=== PATIENT | male | born 1950 | race Caucasian/White ===

== ENCOUNTER 2025-03-15 09:10 | Inpatient (IN) | payer MEDICARE ==
[2025-03-15] MEDS: MAGNESIUM SULFATE-D5W PMX 1 GM in DEXTROSE/WATER 1 100ML.BAG IVPB STA (09:58)
[2025-03-15] MEDS: LACTATED RINGERS 1,000 ML IV ONE (09:58)
[2025-03-15] MEDS: methylPREDNISolone SOD SUCCI 125 MG/2 ML VIAL IV STA (09:58)
[2025-03-15] MEDS: IPRATROPIUM-ALBUTEROL 3 ML NEB INHALATION STA ×2 (10:24→14:07)
[2025-03-15 10:42] LABS: Basophils # (A) 0.01 10*3/uL (0.00-0.10); Basophils % (A) 0.1 %; Eosinophils # (A) 0.02 10*3/uL (0.04-0.35); Eosinophils % (A) 0.3 %; HCT 53.2 % (39.6-50.0); HGB 18.8 g/dL (13.0-17.0); Lymphocytes # (A) 0.78 10*3/uL (0.90-5.00); MCH 31.9 pg (27.0-32.0); MCHC 35.3 g/dL (32.0-37.0); MCV 90.3 fL (80.0-97.0); Mean Platelet Volume 9.2 fL (9.5-12.2); Monocytes # (A) 0.68 10*3/uL (0.20-1.00); Monocytes % (A) 8.7 %; Neutrophils # (A) 6.26 10*3/uL (1.80-7.70); Neutrophils % (A) 80.4 %; Platelet Count 190 10*3/uL (140-440); RBC 5.89 10*6/uL (4.40-5.60); RDW 11.9 % (11.5-14.5); WBC 7.79 10*3/uL (4.50-10.00)
--- NOTE | 2025-03-15 10:45 | XR ---
EXAMINATION TYPE: XR chest 2V DATE OF EXAM: 03/15/2025 10:17 AM COMPARISON: Chest radiographs from none CLINICAL INDICATION: Male, 75 years old with history of difficulty breathing; [facility] TECHNIQUE: XR chest 2V Frontal and lateral views of the chest. FINDINGS: Lungs/Pleura: There is flattening of the diaphragm with increased lucency of the lungs. No evidence o f pneumothorax, pleural effusion or focal consolidation. Pulmonary vascularity: Unremarkable. Heart/mediastinum: Cardiomediastinal silhouette is unremarkable. Musculoskeletal: No acute osseous pathology. IMPRESSION: 1. No acute cardiopulmonary disease process. 2. COPD changes. [facility], , 03/15/2025 10:42 AM
[2025-03-15 11:18] LABS: Influenza A Not Detected (Not Detectd); Influenza B Not Detected (Not Detectd); RSV Not Detected (Not Detectd)
[2025-03-15 13:18] LABS: INR 1.2 (<1.2); Partial Thromboplastin Time 25.6 sec (22.0-30.0); Prothrombin Time 12.6 sec (10.0-12.5)
[2025-03-15 13:21] LABS: ALT 30 U/L (4-49); AST 33 U/L (17-59); African American GFR (CKD) >90 (>60 ml/min/1.73 sqM); Albumin 4.2 g/dL (3.5-5.0); Alkaline Phosphatase 113 U/L (38-126); Anion Gap 8 mmol/L; Blood Urea Nitrogen 12 mg/dL (9-20); Calcium 8.7 mg/dL (8.4-10.2); Carbon Dioxide 27 mmol/L (22-30); Chloride 88 mmol/L (98-107); Glucose 133 mg/dL (74-99); Magnesium 1.7 mg/dL (1.6-2.3); Non-African American GFR(CKD) >90 (>60 ml/min/1.73 sqM); Potassium 4.2 mmol/L (3.5-5.1); Sodium 123 mmol/L (137-145); Total Bilirubin 1.7 mg/dL (0.2-1.3); Total Protein 6.7 g/dL (6.3-8.2)
[2025-03-15] MEDS ORDERED: IPRATROPIUM-ALBUTEROL 3 ML NEB INHALATION PRN (13:36)
[2025-03-15] MEDS ORDERED: NALOXONE 0.4 MG/ML 1 ML VIAL IV PRN (13:37)
--- NOTE | 2025-03-15 13:39 | ED ---
General Adult HPI - General Chief complaint: Shortness of Breath Stated complaint: SOB Time Seen by Provider: 03/15/25 09:25 Source: patient, RN notes reviewed, old records reviewed Mode of arrival: ambulatory Limitations: no limitations - History of Present Illness Initial comments: Patient is a 75-year-old male who presents emergency department for worsening shortness of breath. Has a history of COPD, hypertension. Was recently being treated at home for COPD with breathing treatments, steroids, antibiotics. States he is getting worse. Has been multiple days of the symptoms. Is not normally on oxygen at home. Still smokes cigarettes. Denies any chest pain or abdominal pain. Denies any fevers or chills. Denies any nausea vomiting diarrhea. Presents for further evaluation at this time.Patient denies any productive cough. - Related Data Home Medications Medication Instructions Recorded Confirmed Aspirin EC [Ecotrin Low Dose] 81 mg PO DAILY 03/15/25 03/15/25 Atorvastatin [Lipitor] 40 mg PO DAILY 03/15/25 03/15/25 Doxycycline Hyclate 100 mg PO BID 03/15/25 03/15/25 Fluticasone/Umeclidin/Vilanter 1 puff INHALATION RT-DAILY 03/15/25 03/15/25 [Trelegy Ellipta 100-62.5-25] lisinopriL [Zestril] 40 mg PO DAILY 03/15/25 03/15/25 predniSONE See Taper PO DIRECTED 03/15/25 03/15/25 Allergies Allergy/AdvReac Type Severity Reaction Status Date / Time No Known Allergies Allergy Verified 03/15/25 13:42 Review of Systems ROS Statement: Those systems with pertinent positive or pertinent negative responses have been documented in the HPI. Review of Systems: CONST: Denies fever EYES: Denies blurry vision ENT: Denies nasal congestion C/V: Denies Chest pain RESP: Endorses shortness of breath GI: Denies abdominal pain : Denies dysuria SKIN: Denies rash. MSK: Denies joint pain. NEURO: Denies headache ROS Other: All systems not noted in ROS Statement are negative. Past Medical History Past Medical History: Hypertension Additional Past Medical History / Comment(s): COPD, TIA, History of Any Multi-Drug Resistant Organisms: None Reported Past Surgical History: No Surgical Hx Reported Past Psychological History: No Psychological Hx Reported Smoking Status: Current every day smoker Past Alcohol Use History: Occasional Past Drug Use History: None Reported General Exam - General Exam Comments Initial Comments: General: Appears in no acute distress. HEAD: Normal with no signs of head trauma. EYES: EOMI ENT: Hearing grossly intact, normal oropharynx. RESPIRATORY: Tight breath sounds bilaterally with bilateral expiratory wheezing. Mildly increased work of breathing. No hypoxia on room air. C/V: Regular rate and rhythm. S1 and S2 auscultated, no edema, peripheral pulses 2+ and intact throughout ABD: Abd is soft, nontender, nondistended EXT: No obvious deformity SKIN: No rashes or lesions observed on exposed skin. NEURO: Alert and oriented x 4. Limitations: no limitations Course Vital Signs 03/15/25 03/15/25 03/15/25 09:11 10:25 10:40 Temperature 97.6 F Pulse Rate 99 84 76 Respiratory 28 H Rate Blood Pressure 197/97 O2 Sat by Pulse 96 Oximetry 03/15/25 11:16 Temperature Pulse Rate 80 Respiratory 18 Rate Blood Pressure 174/95 O2 Sat by Pulse 97 Oximetry Medical Decision Making - Medical Decision Making Was pt. sent in by a medical professional or institution (, PA, SOLAR SALES ADVISOR, urgent care, hospital, or usp...) When possible be specific @ -No Did you speak to anyone other than the patient for history (EMS, parent, family, police, friend...)? What history was obtained from this source @ -No Did you review nursing and triage notes (agree or disagree)? Why? @ -I reviewed and agree with nursing and triage notes Were old charts reviewed (outside hosp., previous admission, EMS record, old EKG, old radiological studies, urgent care reports/EKG's, usp records)? Report findings @ -No old charts were reviewed Differential Diagnosis (chest pain, altered mental status, abdominal pain women, abdominal pain men, vaginal bleeding, weakness, fever, dyspnea, syncope, headache, dizziness, GI bleed, back pain, seizure, CVA, palpatations, mental health, musculoskeletal)? @ -COPD, pneumonia, viral syndrome. This list is not all-inclusive. EKG interpreted by me (3pts min.). @ -As above X-rays interpreted by me (1pt min.). @ -Chest x-ray reveals no obvious acute cardiopulmonary process. CT interpreted by me (1pt min.). @ -None done U/S interpreted by me (1pt. min.). @ -None done What testing was considered but not performed or refused? (CT, X-rays, U/S, labs)? Why? @ -None What meds were considered but not given or refused? Why? @ -None Did you discuss the management of the patient with other professionals (professionals i.e. Dr., PA, SOLAR SALES ADVISOR, lab, RT, psych nurse, health and social care teacher, choir teacher, teacher, truant officer, case management assistant)? Give summary @ -Discussed with Dr. Gaston who accepted the admission. Was smoking cessation discussed for >3mins.? @ -No Was critical care preformed (if so, how long)? @ -No Were there social determinants of health that impacted care today? How? (Homelessness, low income, unemployed, alcoholism, drug addiction, transportation, low edu. Level, literacy, decrease access to med. care, nursing home, rehab)? @ -No Was there de-escalation of care discussed even if they declined (Discuss DNR or withdrawal of care, Hospice)? DNR status @ -No What co-morbidities impacted this encounter? (DM, HTN, Smoking, COPD, CAD, Cancer, CVA, ARF, Chemo, Hep., AIDS, mental health diagnosis, sleep apnea, morbid obesity)? @ -COPD Was patient admitted / discharged? Hospital course, mention meds given and route, prescriptions, significant lab abnormalities, going to OR and other pertinent info. @ -Based on patient's presentation physical exam, presents emergency department for suspected COPD exacerbation. Failed outpatient management of it as he has been on steroids as well as a low-dose antibiotic at home. Vitals are within acceptable limits. EKG showed no signs of acute ischemia. Chest x-ray shows no signs of acute cardiopulmonary process. Patient's laboratory studies returned remarkable for hyponatremia of 123. Negative viral swabs. On reevaluation, patient is still significantly wheezy despite multiple breathing treatments. Patient will be admitted to the hospital for COPD. He was in agreement this plan. Apparently on ambulation, patient's oxygen does drop down to the 80%. I spoke with the admitting provider, Dr. Gaston who accepted the admission. Undiagnosed new problem with uncertain prognosis? @ -No Drug Therapy requiring intensive monitoring for toxicity (Heparin, Nitro, Insulin, Cardizem)? @ -No Were any procedures done? @ -No Diagnosis/symptom? @ -COPD, hyponatremia Acute, or Chronic, or Acute on Chronic? @ -Acute Uncomplicated (without systemic symptoms) or Complicated (systemic symptoms)? @ -Complicated Side effects of treatment? @ -No Exacerbation, Progression, or Severe Exacerbation? @ -No Poses a threat to life or bodily function? How? (Chest pain, [place], [place], pneumonia, PE, COPD, DKA, ARF, appy, cholecystitis, CVA, Diverticulitis, Homicidal, Suicidal, threat to staff... and all critical care pts) @ -Yes - Lab Data Result diagrams: 03/15/25 10:07 03/15/25 12:56 Lab Results 03/15/25 03/15/25 03/15/25 Range/Units 10:07 10:07 10:07 WBC 7.79 (4.50-10.00) 10*3/uL RBC 5.89 H (4.40-5.60) 10*6/uL Hgb 18.8 H (13.0-17.0) g/dL Hct 53.2 H (39.6-50.0) % MCV 90.3 (80.0-97.0) fL MCH 31.9 (27.0-32.0) pg MCHC 35.3 (32.0-37.0) g/dL Plt Count 190 (140-440) 10*3/uL MPV 9.2 L (9.5-12.2) fL Immature Gran % (Auto) 0.5 % Neutrophils % 80.4 % Lymphocytes % 10.0 % Monocytes % 8.7 % Eosinophils % 0.3 % Basophils % 0.1 % Immature Gran # 0.04 (0.00-0.04) 10*3/uL Neutrophils # 6.26 (1.80-7.70) 10*3/uL Lymphocytes # 0.78 L (0.90-5.00) 10*3/uL Monocytes # 0.68 (0.20-1.00) 10*3/uL Eosinophils # 0.02 L (0.04-0.35) 10*3/uL Basophils # 0.01 (0.00-0.10) 10*3/uL PT (10.0-12.5) sec INR (<1.2) APTT (22.0-30.0) sec Sodium (137-145) mmol/L Potassium (3.5-5.1) mmol/L Chloride (98-107) mmol/L Carbon Dioxide (22-30) mmol/L Anion Gap mmol/L BUN (9-20) mg/dL Creatinine (0.66-1.25) mg/dL Est GFR (CKD-EPI)AfAm (>60 ml/min/1.73 sqM) Est GFR (CKD-EPI)NonAf (>60 ml/min/1.73 sqM) Glucose (74-99) mg/dL Plasma Lactic Acid Jaylon 2.0 (0.7-2.0) mmol/L Calcium (8.4-10.2) mg/dL Magnesium (1.6-2.3) mg/dL Total Bilirubin (0.2-1.3) mg/dL AST (17-59) U/L ALT (4-49) U/L Alkaline Phosphatase (38-126) U/L Total Protein (6.3-8.2) g/dL Albumin (3.5-5.0) g/dL Urine Color Colorless Urine Appearance Clear (Clear) Urine pH 7.0 (5.0-8.0) Ur Specific [place] 1.004 (1.001-1.035) Urine Protein Negative (Negative) Urine Glucose (UA) Negative (Negative) Urine Ketones Negative (Negative) Urine Blood Negative (Negative) Urine Nitrite Negative (Negative) Urine Bilirubin Negative (Negative) Urine Urobilinogen <2.0 (<2.0) mg/dL Ur Leukocyte Esterase Negative (Negative) Influenza Type A (PCR) (Not Detectd) Influenza Type B (PCR) (Not Detectd) RSV (PCR) (Not Detectd) SARS-CoV-2 (PCR) (Not Detectd) 03/15/25 03/15/25 03/15/25 Range/Units 10:07 12:56 12:56 WBC (4.50-10.00) 10*3/uL RBC (4.40-5.60) 10*6/uL Hgb (13.0-17.0) g/dL Hct (39.6-50.0) % MCV (80.0-97.0) fL MCH (27.0-32.0) pg MCHC (32.0-37.0) g/dL Plt Count (140-440) 10*3/uL MPV (9.5-12.2) fL Immature Gran % (Auto) % Neutrophils % % Lymphocytes % % Monocytes % % Eosinophils % % Basophils % % Immature Gran # (0.00-0.04) 10*3/uL Neutrophils # (1.80-7.70) 10*3/uL Lymphocytes # (0.90-5.00) 10*3/uL Monocytes # (0.20-1.00) 10*3/uL Eosinophils # (0.04-0.35) 10*3/uL Basophils # (0.00-0.10) 10*3/uL PT 12.6 H (10.0-12.5) sec INR 1.2 H (<1.2) APTT 25.6 (22.0-30.0) sec Sodium 123 L (137-145) mmol/L Potassium 4.2 (3.5-5.1) mmol/L Chloride 88 L (98-107) mmol/L Carbon Dioxide 27 (22-30) mmol/L Anion Gap 8 mmol/L BUN 12 (9-20) mg/dL Creatinine 0.57 L (0.66-1.25) mg/dL Est GFR (CKD-EPI)AfAm >90 (>60 ml/min/1.73 sqM) Est GFR (CKD-EPI)NonAf >90 (>60 ml/min/1.73 sqM) Glucose 133 H (74-99) mg/dL Plasma Lactic Acid Jaylon (0.7-2.0) mmol/L Calcium 8.7 (8.4-10.2) mg/dL Magnesium 1.7 (1.6-2.3) mg/dL Total Bilirubin 1.7 H (0.2-1.3) mg/dL AST 33 (17-59) U/L ALT 30 (4-49) U/L Alkaline Phosphatase 113 (38-126) U/L Total Protein 6.7 (6.3-8.2) g/dL Albumin 4.2 (3.5-5.0) g/dL Urine Color Urine Appearance (Clear) Urine pH (5.0-8.0) Ur Specific [place] (1.001-1.035) Urine Protein (Negative) Urine Glucose (UA) (Negative) Urine Ketones (Negative) Urine Blood (Negative) Urine Nitrite (Negative) Urine Bilirubin (Negative) Urine Urobilinogen (<2.0) mg/dL Ur Leukocyte Esterase (Negative) Influenza Type A (PCR) Not Detected (Not Detectd) Influenza Type B (PCR) Not Detected (Not Detectd) RSV (PCR) Not Detected (Not Detectd) SARS-CoV-2 (PCR) Not Detected (Not Detectd) - EKG Data -: EKG Interpreted by Me EKG Comments: 12-lead Electrocardiogram Interpretation Note EKG was reviewed and interpreted by myself. 12-lead ECG performed at 0923 is interpreted by me as revealing normal sinus rhythm at a rate of 94 beats per minute. [place] is normal. VT interval is 200 ms, QRS duration is 97 ms, QTc is 3 to 98 ms. There were no ST or T wave abnormalities to suggest myocardial ischemia or injury. R wave progression across the precordium was satisfactory. By my interpretation this EKG is non-diagnostic for acute ischemia. Disposition Clinical Impression: COPD (chronic obstructive pulmonary disease), Hyponatremia Disposition: ADMITTED IP TO THIS HOSP Condition: Stable Referrals: Eduin Hare MD [Primary Care Provider] - 1-2 days Time of Disposition: 13:35
[2025-03-15 13:41] LABS: Appearance,Urine Clear (Clear); Bilirubin,Urine Negative (Negative); Blood,Urine Negative (Negative); Color,Urine Colorless; Glucose,Urine (UA) Negative (Negative); Ketones,Urine Negative (Negative); Leukocyte Esterase,Urine Negative (Negative); Nitrite,Urine Negative (Negative); Protein,Urine Negative (Negative); Specific Gravity,Urine 1.004 (1.001-1.035); Urobilinogen,Urine <2.0 mg/dL (<2.0)
--- NOTE | 2025-03-15 15:21 | P.HPIM ---
History of Present Illness H&P Date: 03/15/25 Chief Complaint: Shortness of breath Patient is a 75 year old male with hypertension, COPD, TIA, tobacco dependence presented to the ED with shortness of breath. He states that his symptoms started with a cold. on 03/11 he went a walk in clinic and he is being treated for COPD exacerbation at home for the past 3 days with steroids, antibiotics and breathing treatments. But he reports that those treatments did not help him a lot.Today patient reports chest tightness and worsening shortness of breath. He has oxygen at home but uses it maybe 1-2 times in 6 months. He is a current everyday smoker. Additionally, he reports that his nose is bruised for a month. Denies fever, chills, palpitations, abdominal pain, nausea, vomiting, hematuria, dysuria, hematochezia, melena, headache, slurred speech, numbness, tingling, dizziness, lightheadedness, blurred vision, double vision. ED documentation reviewed. In the ED patient was treated with DuoNeb, Lactated Ringer, Magnesium sulfate, Solu-Medrol. Vitals on admission T 97.6 F, OH 99 bpm, RR 28, BP 197/97, SpO2 96% on room air Most recent vitals OH 80 bpm, RR 18, BP 174/95, SpO2 97% on 3L oxygen via nasal cannula EKG independently interpreted as normal sinus rhythm, rate 94 bpm, QTc is 398 ms. Chest x-ray shows no acute cardiopulmonary disease/process, COPD changes Labs on admission show WBC 7.79, hemoglobin 18.8, hematocrit 53.2, PT 12.6, INR 1.2, sodium 123, chloride 88, creatinine 0.57, glucose 133, total bilirubin 1.7, magnesium 1.7 UA is unremarkable Respiratory panel is negative Review of systems: Pertinent positives and negatives as discussed in HPI, a complete review of sy stems was performed and all other systems are negative. Physical examination: Vital signs reviewed General: moderate distress, appears at stated age Derm: warm, dry, intact, nose bruised, multiple small bruises on the left arm Head: atraumatic, normocephalic, symmetric Eyes: EOMI, anicteric sclera Mouth: no lip lesion, mucus membranes moist Cardiovascular: S1 S2 reg, no murmur Lungs: coarse rhonchi bilaterally, accessory muscle use Abdominal: soft, non-tender to palpation Extremities: No cyanosis, clubbing, or pedal edema. Neuro: Alert, Oriented, Gross neurological examination did not reveal any focal deficits. Psych: well appearing, appropriate affect Assessment/Plan: Patient is a 75 year old male with hypertension, COPD, TIA, tobacco dependence presented to the ED with shortness of breath. Patient admitted to internal medicine service. Active: #. Acute hypoxic respiratory failure #. COPD exacerbation Chest x-ray shows no acute cardiopulmonary disease/process, COPD changes Received Duoneb, Solumedrol 125 mg, Mag sulph 1gm in the ED Continue supplemental oxygen as needed Continue Duonebs Start home Trelegy Start Solumedrol 40 mg IV Q8HR Continue telemetry monitoring Consulted Pulmonology #. Euvolemic Hyponatremia Na 123 Recheck BMP Discontinue IV fluids Obtain serum osm, urine osm, urine sodium, TSH Consider obtaining cortisol level Monitor BMP #. Hyperbilirubinemia #. Coagulopathy Total bilirubin 1.7, PT 12.6, INR 1.2 Patient denies abdominal pain Monitor CMP Chronic: #. History of TIA #. Hypertension Continue Aspirin 81 mg PO daily, Atorvastatin 40 mg PO daily, Lisinopril 40 mg PO daily F: None E: Hyponatremia N: Heart healthy diet A: Ambulatory DVT prophylaxis: Lovenox 40 mg SQ daily The patient is admitted with an anticipated more than 2 midnight stay for evaluation of shortness of breath CODE STATUS: Full code Discussed with: Patient Anticipated discharge place: Pending clinical course Dictation was produced using [email or web address] dictation software. please excuse any grammatical, word or spelling errors. Adina Wilson MD PGY-1 IM I have seen and evaluated the patient today. Discussed with the resident and agree with the residents finding and plan as documented in the resident's note. Changes highlighted in blue font. Past Medical History Past Medical History: Hypertension Additional Past Medical History / Comment(s): COPD, TIA, History of Any Multi-Drug Resistant Organisms: None Reported Past Surgical History: No Surgical Hx Reported Past Psychological History: No Psychological Hx Reported Smoking Status: Current every day smoker Past Alcohol Use History: Occasional Past Drug Use History: None Reported Medications and Allergies Home Medications Medication Instructions Recorded Confirmed Type Aspirin EC [Ecotrin Low Dose] 81 mg PO DAILY 03/15/25 03/15/25 History Atorvastatin [Lipitor] 40 mg PO DAILY 03/15/25 03/15/25 History Doxycycline Hyclate 100 mg PO BID 03/15/25 03/15/25 History Fluticasone/Umeclidin/Vilanter 1 puff INHALATION RT-DAILY 03/15/25 03/15/25 History [Trelegy Ellipta 100-62.5-25] lisinopriL [Zestril] 40 mg PO DAILY 03/15/25 03/15/25 History predniSONE See Taper PO DIRECTED 03/15/25 03/15/25 History Allergies Allergy/AdvReac Type Severity Reaction Status Date / Time No Known Allergies Allergy Verified 03/15/25 13:42 Physical Exam Vitals: Vital Signs Temp Pulse Resp BP Pulse Ox 03/15/25 11:16 80 18 174/95 97 03/15/25 10:40 76 03/15/25 10:25 84 03/15/25 09:11 97.6 F 99 28 H 197/97 96 Intake and Output 03/14/25 03/15/25 03/15/25 22:59 06:59 14:59 Other: Weight 68.946 kg Results CBC & Chem 7: 03/15/25 10:07 03/15/25 12:56 Labs: Abnormal Lab Results - Last 24 Hours (Table) 03/15/25 03/15/25 03/15/25 Range/Units 10:07 12:56 12:56 RBC 5.89 H (4.40-5.60) 10*6/uL Hgb 18.8 H (13.0-17.0) g/dL Hct 53.2 H (39.6-50.0) % MPV 9.2 L (9.5-12.2) fL Lymphocytes # 0.78 L (0.90-5.00) 10*3/uL Eosinophils # 0.02 L (0.04-0.35) 10*3/uL PT 12.6 H (10.0-12.5) sec INR 1.2 H (<1.2) Sodium 123 L (137-145) mmol/L Chloride 88 L (98-107) mmol/L Creatinine 0.57 L (0.66-1.25) mg/dL Glucose 133 H (74-99) mg/dL Total Bilirubin 1.7 H (0.2-1.3) mg/dL
[2025-03-15] MEDS: SODIUM CHLORIDE 0.9% 1,000 ML IV STA (15:32)
[2025-03-15 15:39] LABS: African American GFR (CKD) >90 (>60 ml/min/1.73 sqM); Anion Gap 9 mmol/L; Blood Urea Nitrogen 12 mg/dL (9-20); Calcium 8.8 mg/dL (8.4-10.2); Carbon Dioxide 23 mmol/L (22-30); Chloride 90 mmol/L (98-107); Glucose 148 mg/dL (74-99); Non-African American GFR(CKD) >90 (>60 ml/min/1.73 sqM); Potassium 4.2 mmol/L (3.5-5.1); Sodium 122 mmol/L (137-145)
--- NOTE | 2025-03-15 16:25 | P.CNPUL ---
History of Present Illness Consult date: 03/15/25 Requesting physician: Adina Wilson Reason for consult: COPD Chief complaint: Shortness of breath cough and wheezing History of present illness: This is a 75-year-old white male smoker no history of COPD hypertension TIA, patient presented to the ER with shortness of breath cough and wheezing for the last few days. On 03/11/2025, patient was seen in the walk-in clinic and received treatment for symptoms of COPD exacerbation and tracheobronchitis, patient received inhalers, antibiotics, and steroids. Continues to do poorly, continues to smoke, here today in the ER for evaluation and I was asked to see him in consultation. Patient is an everyday smoker, he is at least a [id number] smoker, symptoms are classic symptoms of COPD with recurrent episodes of cough wheezing and shortness of breath. Chest x-ray showed COPD changes no acute process was noted otherwise. CBC is relatively normal except for hemoglobin of 18.8 which implies that the patient may be chronically hypoxic secondary to COPD, sodium is low at 122 otherwise his labs are unremarkable. Patient denies any nausea vomiting denies any diarrhea, and no clear-cut as what his baseline sodium is normally. Review of Systems REVIEW OF SYSTEMS: CONSTITUTIONAL: Weakness, generalized EYES: Negative. ENT: Negative. CARDIAC: Negative. PULMONARY: As noted in HPI GI: Negative. GENITOURINARY: Negative. MUSCULOSKELETAL: Negative. SKIN: Negative. NEUROPSYCH: Negative. ENDOCRINE: Negative. HEMATOLOGIC: Negative. Past Medical History Past Medical History: Hypertension Additional Past Medical History / Comment(s): COPD, TIA, History of Any Multi-Drug Resistant Organisms: None Reported Past Surgical History: No Surgical Hx Reported Past Psychological History: No Psychological Hx Reported Smoking Status: Current every day smoker Past Alcohol Use History: Occasional Past Drug Use History: None Reported Medications and Allergies Home Medications Medication Instructions Recorded Confirmed Type Aspirin EC [Ecotrin Low Dose] 81 mg PO DAILY 03/15/25 03/15/25 History Atorvastatin [Lipitor] 40 mg PO DAILY 03/15/25 03/15/25 History Doxycycline Hyclate 100 mg PO BID 03/15/25 03/15/25 History Fluticasone/Umeclidin/Vilanter 1 puff INHALATION RT-DAILY 03/15/25 03/15/25 History [Trelegy Ellipta 100-62.5-25] lisinopriL [Zestril] 40 mg PO DAILY 03/15/25 03/15/25 History predniSONE See Taper PO DIRECTED 03/15/25 03/15/25 History Allergies Allergy/AdvReac Type Severity Reaction Status Date / Time No Known Allergies Allergy Verified 03/15/25 13:42 Physical Exam Vitals: Vital Signs Temp Pulse Resp BP Pulse Ox 03/15/25 14:18 98 03/15/25 14:07 96 03/15/25 13:48 98 22 169/105 95 03/15/25 11:16 80 20 174/95 97 03/15/25 10:58 141 H 30 H 86 L 03/15/25 10:40 76 03/15/25 10:25 84 03/15/25 09:11 97.6 F 99 28 H 197/97 96 Intake and Output 03/15/25 03/15/25 03/15/25 06:59 14:59 22:59 Other: Weight 68.946 kg General: The patient is awake and alert, in no distress, and does not appear acutely ill. Skin: Skin is warm and dry and no rashes or lesions are noted. Eye: Pupils are equal, round and reactive to light, extra-ocular movements are intact; there is normal conjunctiva bilaterally. Ears, nose, mouth and throat: There are moist mucous membranes and no oral lesions. Neck: The neck is supple, there is no tenderness or JVD. Cardiovascular: There is a regular rate and rhythm. No murmur, rub or gallop is appreciated. Respiratory: Rhonchi and wheezes noted bilaterally. Gastrointestinal: Soft, non-distended, non-tender abdomen without masses or organomegaly noted. There is no rebound or guarding present. Bowel sounds are unremarkable. Back: There is no tenderness to palpation in the midline. There is no obvious deformity. Musculoskeletal: Normal ROM, no tenderness, There is no pedal edema. There is no calf tenderness or swelling. No cords were appreciated. Neurological: CN II-XII intact, Cranial nerves III through XII are intact. There are no obvious motor or sensory deficits. Coordination appears grossly intact. Speech is normal. Psychiatric: Cooperative, appropriate mood & affect, normal judgment. Results - Laboratory Findings CBC and BMP: 03/15/25 10:07 03/15/25 15:05 PT/INR, D-dimer PT 12.6 sec (10.0-12.5) H 03/15/25 12:56 INR 1.2 (<1.2) H 03/15/25 12:56 Abnormal lab findings: Abnormal Labs 03/15/25 03/15/25 03/15/25 10:07 12:56 12:56 RBC 5.89 H Hgb 18.8 H Hct 53.2 H MPV 9.2 L Lymphocytes # 0.78 L Eosinophils # 0.02 L PT 12.6 H INR 1.2 H Sodium 123 L Chloride 88 L Creatinine 0.57 L Glucose 133 H Total Bilirubin 1.7 H 03/15/25 15:05 RBC Hgb Hct MPV Lymphocytes # Eosinophils # PT INR Sodium 122 L Chloride 90 L Creatinine 0.54 L Glucose 148 H Total Bilirubin - Diagnostic Findings Chest x-ray: image reviewed (As noted in HPI) Assessment and Plan Assessment: Impression: Acute COPD exacerbation Acute hypoxic respiratory failure Acute tracheobronchitis Euvolemic hyponatremia Dyslipidemia Tobacco dependence syndrome History of hypertension Secondary polycythemia most likely secondary to chronic hypoxia secondary to severe COPD Recommendation: Agree with the present treatment plan for his COPD Agree with the workup for his euvolemic hyponatremia, this could be SIADH related it is definitely euvolemic hyponatremia Continue DuoNeb Continue Symbicort Continue methylprednisolone Postdischarge patient will need to follow-up with me on outpatient basis and have follow-up PFT Patient may need to be on home O2 postdischarge. Prognosis is guarded. Will continue to follow Time with Patient: Greater than 30
[2025-03-15] MEDS: IPRATROPIUM-ALBUTEROL 3 ML NEB INHALATION SCH (17:29)
[2025-03-15] MEDS: methylPREDNISolone SOD SUCCI 40 MG/ML 1 ML VIAL IV SCH (17:32)
[2025-03-16] MEDS ORDERED: TIOTROPIUM 2.5 MCG INHALER INHALATION SCH (08:00)
[2025-03-16] MEDS: ASPIRIN 81 MG PO SCH (08:03)
[2025-03-16] MEDS: ATORVASTATIN 40 MG TAB PO SCH (08:03)
[2025-03-16] MEDS: ENOXAPARIN 40 MG/0.4 ML SYRINGE SQ SCH (08:03)
[2025-03-16] MEDS: lisinopriL 20 MG TAB PO SCH (08:03)
[2025-03-16] MEDS: SYMBICORT 160-4.5 MCG INHALER INHALATION SCH (08:29)
[2025-03-16 08:32] LABS: Basophils # (A) 0.01 10*3/uL (0.00-0.10); Basophils % (A) 0.1 %; HCT 51.8 % (39.6-50.0); HGB 18.6 g/dL (13.0-17.0); Lymphocytes # (A) 0.53 10*3/uL (0.90-5.00); Lymphocytes % (A) 5.8 %; MCH 32.4 pg (27.0-32.0); MCHC 35.9 g/dL (32.0-37.0); MCV 90.2 fL (80.0-97.0); Mean Platelet Volume 9.1 fL (9.5-12.2); Monocytes # (A) 0.57 10*3/uL (0.20-1.00); Monocytes % (A) 6.3 %; Neutrophils # (A) 7.88 10*3/uL (1.80-7.70); Platelet Count 221 10*3/uL (140-440); RBC 5.74 10*6/uL (4.40-5.60); RDW 12.3 % (11.5-14.5); WBC 9.06 10*3/uL (4.50-10.00)
[2025-03-16 08:33] LABS: ALT 27 U/L (4-49); AST 30 U/L (17-59); African American GFR (CKD) >90 (>60 ml/min/1.73 sqM); Albumin 4.3 g/dL (3.5-5.0); Alkaline Phosphatase 107 U/L (38-126); Anion Gap 11 mmol/L; Blood Urea Nitrogen 16 mg/dL (9-20); Carbon Dioxide 24 mmol/L (22-30); Chloride 91 mmol/L (98-107); Glucose 136 mg/dL (74-99); Magnesium 1.8 mg/dL (1.6-2.3); Non-African American GFR(CKD) >90 (>60 ml/min/1.73 sqM); Potassium 4.3 mmol/L (3.5-5.1); Sodium 126 mmol/L (137-145); Total Bilirubin 1.5 mg/dL (0.2-1.3); Total Protein 6.7 g/dL (6.3-8.2)
[2025-03-16 08:44] LABS: INR 1.1 (<1.2); Partial Thromboplastin Time 24.2 sec (22.0-30.0); Prothrombin Time 12.2 sec (10.0-12.5)
--- NOTE | 2025-03-16 12:20 | P.PN ---
Subjective Progress Note Date: 03/16/25 Principal diagnosis: Hospital course: Patient is a 75 year old male with hypertension, COPD, TIA, tobacco dependence presented to the ED with shortness of breath. He states that his symptoms started with a cold. on 03/11 he went a walk in clinic and he is being treated for COPD exacerbation at home for the past 3 days with steroids, antibiotics and breathing treatments. But he reports that those treatments did not help him a lot.Today patient reports chest tightness and worsening shortness of breath. He has oxygen at home but uses it maybe 1-2 times in 6 months. He is a current everyday smoker. Additionally, he reports that his nose is bruised for a month. Denies fever, chills, palpitations, abdominal pain, nausea, vomiting, hematuria, dysuria, hematochezia, melena, headache, slurred speech, numbness, tingling, dizziness, lightheadedness, blurred vision, double vision. ED documentation reviewed. In the ED patient was treated with DuoNeb, Lactated Ringer, Magnesium sulfate, Solu-Medrol. 03/16/25: Patient is seen and examined at bedside today. He notes improvement in his shortness of breath. Review of systems: Pertinent positives and negatives as discussed in HPI, a complete review of systems was performed and all other systems are negative. Vitals: Signs Reviewe, BP 172/77 Physical examination: General: moderate distress, appears at stated age Derm: warm, dry, intact, nose bruised, multiple small bruises on the left arm Head: atraumatic, normocephalic, symmetric Eyes: EOMI, anicteric sclera Mouth: no lip lesion, mucus membranes moist Cardiovascular: S1 S2 reg, no murmur Lungs: coarse rhonchi bilaterally, accessory muscle use Abdominal: soft, non-tender to palpation Extremities: No cyanosis, clubbing, or pedal edema. Neuro: Alert, Oriented, Gross neurological examination did not reveal any focal deficits. Psych: well appearing, appropriate affect Data Reviewed Today: Labs: Hemoglobin 18.6, hematocrit 41.8, INR 1.1, PT 12.2, sodium 126, glucose 136, total bilirubin 1.5, TSH 0.518 Imaging: No new imaging Assessment/Plan: Patient is a 75 year old male with hypertension, COPD, TIA, tobacco dependence presented to the ED with shortness of breath. Patient admitted to internal medicine service. Active: #. Acute hypoxic respiratory failure #. COPD exacerbation Chest x-ray shows no acute cardiopulmonary disease/process, COPD changes Received Duoneb, Solumedrol 125 mg, Mag sulph 1gm in the ED Continue supplemental oxygen as needed Continue Duonebs, Symbicort, Solumedrol 40 mg IV Q8HR Continue telemetry monitoring Pulmonology is following, recommend Postdischarge patient will need follow-up PFT, Patient may need to be on home O2 postdischarge. #. Euvolemic Hyponatremia, improving Discontinue IV fluids TSH 0.518 Pending serum osm, urine osm, urine sodium Consider obtaining cortisol level Monitor BMP #. Hyperbilirubinemia #. Coagulopathy Total bilirubin 1.7, PT 12.6, INR 1.2 Patient denies abdominal pain Monitor CMP Chronic: #. History of TIA #. Hypertension Continue Aspirin 81 mg PO daily, Atorvastatin 40 mg PO daily, Lisinopril 40 mg PO daily F: None E: Hyponatremia N: Heart healthy diet A: Ambulatory DVT prophylaxis: Lovenox 40 mg SQ daily Code status: FULL CODE Anticipated discharge place: Pending clinical course Anticipated discharge time: Pending clinical course Dictation was produced using [employer] dictation software. please excuse any grammatical, word or spelling errors. Adina Wilson MD PGY-1 IM I saw and evaluated the patient during the cueto and critical portions of this encounter, and discussed the case in detail with the resident author of this note, I agree with the Assessment and Plan, and my changes, if any, are highlighted in blue. Objective - Vital Signs Vital signs: Vital Signs Temp 97.9 F 03/15/25 20:55 Pulse 99 03/16/25 04:56 Resp 20 03/16/25 04:56 BP 172/77 03/16/25 04:56 Pulse Ox 98 03/16/25 04:56 FiO2 Intake & Output 03/15/25 03/16/25 03/16/25 18:59 06:59 18:59 Weight 68.946 kg 64.3 kg Other: Voiding Method Urinal - Labs CBC & Chem 7: 03/16/25 07:33 03/16/25 07:33 Labs: Abnormal Lab Results - Last 24 Hours (Table) 03/15/25 03/15/25 03/15/25 Range/Units 10:07 12:56 12:56 RBC 5.89 H (4.40-5.60) 10*6/uL Hgb 18.8 H (13.0-17.0) g/dL Hct 53.2 H (39.6-50.0) % MPV 9.2 L (9.5-12.2) fL Lymphocytes # 0.78 L (0.90-5.00) 10*3/uL Eosinophils # 0.02 L (0.04-0.35) 10*3/uL PT 12.6 H (10.0-12.5) sec INR 1.2 H (<1.2) Sodium 123 L (137-145) mmol/L Chloride 88 L (98-107) mmol/L Creatinine 0.57 L (0.66-1.25) mg/dL Glucose 133 H (74-99) mg/dL Total Bilirubin 1.7 H (0.2-1.3) mg/dL 03/15/25 Range/Units 15:05 RBC (4.40-5.60) 10*6/uL Hgb (13.0-17.0) g/dL Hct (39.6-50.0) % MPV (9.5-12.2) fL Lymphocytes # (0.90-5.00) 10*3/uL Eosinophils # (0.04-0.35) 10*3/uL PT (10.0-12.5) sec INR (<1.2) Sodium 122 L (137-145) mmol/L Chloride 90 L (98-107) mmol/L Creatinine 0.54 L (0.66-1.25) mg/dL Glucose 148 H (74-99) mg/dL Total Bilirubin (0.2-1.3) mg/dL
--- NOTE | 2025-03-16 15:02 | P.PN ---
Subjective Progress Note Date: 03/16/25 Principal diagnosis: Acute exacerbation of COPD with acute hypoxic respiratory failure and purulent tracheobronchitis. This is a 75-year-old white male smoker no history of COPD hypertension TIA, patient presented to the ER with shortness of breath cough and wheezing for the last few days. On 03/11/2025, patient was seen in the walk-in clinic and received treatment for symptoms of COPD exacerbation and tracheobronchitis, patient received inhalers, antibiotics, and steroids. Continues to do poorly, continues to smoke, here today in the ER for evaluation and I was asked to see him in consultation. Patient is an everyday smoker, he is at least a [id number] smoker, symptoms are classic symptoms of COPD with recurrent episodes of cough wheezing and shortness of breath. Chest x-ray showed COPD changes no acute process was noted otherwise. CBC is relatively normal except for hemoglobin of 18.8 which implies that the patient may be chronically hypoxic secondary to PER DIEM RN D, sodium is low at 122 otherwise his labs are unremarkable. Patient denies any nausea vomiting denies any diarrhea, and no clear-cut as what his baseline sodium is normally. Patient was evaluated today on 03/16/2025, seeing him for follow-up on his acute COPD exacerbation. Patient is feeling better today breathing easier less cough less wheezing less shortness of breath, however not back to baseline. Sodium remains relatively low being addressed by admitting physician. WBC is 9.0 hemoglobin 18.6, electrolytes showed sodium up to 126 from 122 yesterday, renal profile is normal bicarb is normal blood sugar is 136. Chest x-ray on admission showed COPD changes, no acute cardiopulmonary process. Objective - Vital Signs Vital signs: Vital Signs Temp 97.2 F L 03/16/25 12:03 Pulse 101 H 03/16/25 13:44 Resp 22 03/16/25 12:03 BP 159/81 03/16/25 12:03 Pulse Ox 98 03/16/25 13:44 FiO2 Intake & Output 03/15/25 03/16/25 03/16/25 18:59 06:59 18:59 Intake Total 250 Balance 250 Weight 68.946 kg 64.3 kg Intake: IV 10 Invasive Line 1 10 Oral 240 Other: Voiding Method Urinal Urinal - Exam General: The patient is awake and alert, in no distress, on 2 L nasal cannula with O2 saturation of 90% to 98% Skin: Skin is warm and dry and no rashes or lesions are noted. Eye: Pupils are equal, round and reactive to light, extra-ocular movements are intact; there is normal conjunctiva bilaterally. Ears, nose, mouth and throat: There are moist mucous membranes and no oral lesions. Neck: The neck is supple, there is no tenderness or JVD. Cardiovascular: There is a regular rate and rhythm. No murmur, rub or gallop is appreciated. Respiratory: Wheezing on forced expiratory maneuver noted bilaterally Gastrointestinal: Soft, non-distended, non-tender abdomen without masses or organomegaly noted. There is no rebound or guarding present. Bowel sounds are unremarkable. Back: There is no tenderness to palpation in the midline. There is no obvious deformity. Musculoskeletal: Normal ROM, no tenderness, There is no pedal edema. There is no calf tenderness or swelling. No cords were appreciated. Neurological: CN II-XII intact, Cranial nerves III through XII are intact. There are no obvious motor or sensory deficits. Coordination appears grossly intact. Speech is normal. Psychiatric: Cooperative, appropriate mood & affect, normal judgment. - Labs CBC & Chem 7: 03/16/25 07:33 03/16/25 07:33 Labs: Abnormal Lab Results - Last 24 Hours (Table) 03/15/25 03/16/25 03/16/25 Range/Units 15:05 07:33 07:33 RBC 5.74 H (4.40-5.60) 10*6/uL Hgb 18.6 H (13.0-17.0) g/dL Hct 51.8 H (39.6-50.0) % MCH 32.4 H (27.0-32.0) pg MPV 9.1 L (9.5-12.2) fL Immature Gran # 0.07 H (0.00-0.04) 10*3/uL Neutrophils # 7.88 H (1.80-7.70) 10*3/uL Lymphocytes # 0.53 L (0.90-5.00) 10*3/uL Eosinophils # 0.00 L (0.04-0.35) 10*3/uL Sodium 122 L 126 L (137-145) mmol/L Chloride 90 L 91 L (98-107) mmol/L Creatinine 0.54 L 0.60 L (0.66-1.25) mg/dL Glucose 148 H 136 H (74-99) mg/dL Total Bilirubin 1.5 H (0.2-1.3) mg/dL Assessment and Plan Assessment: Impression: Acute COPD exacerbation Acute hypoxic respiratory failure Acute tracheobronchitis Euvolemic hyponatremia Dyslipidemia Tobacco dependence syndrome History of hypertension Secondary polycythemia most likely secondary to chronic hypoxia secondary to severe COPD Recommendation: Continue bronchodilators, including DuoNeb and Symbicort Continue methylprednisolone Continue DVT prophylaxis. Continue to closely monitor his sodium and address accordingly Patient may need to be on home O2 postdischarge. That would be decided upon during the time of discharge. Prognosis is guarded. Remains relatively ill not quite ready for discharge, could be considered for possible discharge in 24 to 48 hours. Will continue to follow Time with Patient: Less than 30
[2025-03-17 08:33] LABS: HCT 51.8 % (39.6-50.0); HGB 18.1 g/dL (13.0-17.0); MCHC 34.9 g/dL (32.0-37.0); MCV 91.7 fL (80.0-97.0); Mean Platelet Volume 9.1 fL (9.5-12.2); Platelet Count 254 10*3/uL (140-440); RBC 5.65 10*6/uL (4.40-5.60); RDW 12.1 % (11.5-14.5); WBC 12.61 10*3/uL (4.50-10.00)
[2025-03-17 08:42] LABS: African American GFR (CKD) >90 (>60 ml/min/1.73 sqM); Anion Gap 12 mmol/L; Blood Urea Nitrogen 20 mg/dL (9-20); Calcium 9.3 mg/dL (8.4-10.2); Carbon Dioxide 26 mmol/L (22-30); Chloride 89 mmol/L (98-107); Glucose 125 mg/dL (74-99); Non-African American GFR(CKD) >90 (>60 ml/min/1.73 sqM); Potassium 4.5 mmol/L (3.5-5.1); Sodium 127 mmol/L (137-145)
--- NOTE | 2025-03-17 11:41 | P.PN ---
Subjective Progress Note Date: 03/17/25 Principal diagnosis: Hospital course: Patient is a 75 year old male with hypertension, COPD, TIA, tobacco dependence presented to the ED with shortness of breath. He states that his symptoms started with a cold. on 03/11 he went a walk in clinic and he is being treated for COPD exacerbation at home for the past 3 days with steroids, antibiotics and breathing treatments. But he reports that those treatments did not help him a lot.Today patient reports chest tightness and worsening shortness of breath. He has oxygen at home but uses it maybe 1-2 times in 6 months. He is a current everyday smoker. Additionally, he reports that his nose is bruised for a month. Denies fever, chills, palpitations, abdominal pain, nausea, vomiting, hematuria, dysuria, hematochezia, melena, headache, slurred speech, numbness, tingling, dizziness, lightheadedness, blurred vision, double vision. ED documentation reviewed. In the ED patient was treated with DuoNeb, Lactated Ringer, Magnesium sulfate, Solu-Medrol. 03/16/25: Patient is seen and examined at bedside today. He notes improvement in his shortness of breath. 03/17/25: Patient evaluated at bedside. Yesterday he was walking in the lobby and he would get short of breath frequently and would assume a tripod position. Patient states his shortness of breath is better. Review of systems: Pertinent positives and negatives as discussed in HPI, a complete review of systems was performed and all other systems are negative. Vitals: Signs Reviewed, BP 107/75, 96% on 2L oxygen via nasal cannula Physical examination: General: moderate distress, appears at stated age Derm: warm, dry, intact, nose bruised, multiple small bruises on the left arm Head: atraumatic, normocephalic, symmetric Eyes: EOMI, anicteric sclera Mouth: no lip lesion, mucus membranes moist Cardiovascular: S1 S2 reg, no murmur Lungs: coarse rhonchi bilaterally, accessory muscle use Abdominal: soft, non-tender to palpation Extremities: No cyanosis, clubbing, or pedal edema. Neuro: Alert, Oriented, Gross neurological examination did not reveal any focal deficits. Psych: well appearing, appropriate affect Data Reviewed Today: Labs: WBC 12.61, Hb 18.1, Na 127 Urine osm 576, Urine sodium 20, serum osm 271 Imaging: No new imaging Assessment/Plan: Patient is a 75 year old male with hypertension, COPD, TIA, tobacco dependence presented to the ED with shortness of breath. Active: #. Acute hypoxic respiratory failure #. COPD exacerbation Chest x-ray shows no acute cardiopulmonary disease/process, COPD changes Received Duoneb, Solumedrol 125 mg, Mag sulph 1gm in the ED Continue supplemental oxygen as needed Continue Duonebs, Symbicort, Solumedrol 40 mg IV Q8HR Consider starting prednisone taper tomorrow for discharge Continue telemetry monitoring Pulmonology is following, recommend Postdischarge patient will need follow-up PFT, Patient may need to be on home O2 postdischarge. #. Euvolemic Hyponatremia, improving Discontinue IV fluids Fluid restriction 1000ml TSH 0.518, Urine osm 576, Urine sodium 20, serum osm 271 Consider obtaining cortisol level Monitor BMP #. Hyperbilirubinemia, improving #. Coagulopathy, resolved Patient denies abdominal pain Chronic: #. History of TIA #. Hypertension Continue Aspirin 81 mg PO daily, Atorvastatin 40 mg PO daily, Lisinopril 40 mg PO daily F: None E: Hyponatremia N: Heart healthy diet A: Ambulatory DVT prophylaxis: Lovenox 40 mg SQ daily Code status: FULL CODE Anticipated discharge place: Home Anticipated discharge time: Likely tomorrow Dictation was produced using [employer] dictation software. please excuse any grammatical, word or spelling errors. Adina Wilson MD PGY-1 IM I saw and evaluated the patient during the cueto and critical portions of this encounter, and discussed the case in detail with the resident author of this note, I agree with the Assessment and Plan, and my changes, if any, are highlighted in blue. Objective - Vital Signs Vital signs: Vital Signs Temp 97.7 F 03/17/25 04:35 Pulse 73 03/17/25 04:35 Resp 20 03/17/25 04:35 BP 158/84 03/17/25 04:35 Pulse Ox 99 03/17/25 04:35 FiO2 Intake & Output 03/16/25 03/17/25 03/17/25 18:59 06:59 18:59 Intake Total 250 Output Total 600 Balance 250 -600 Weight 64.1 kg Intake: IV 10 Invasive Line 1 10 Oral 240 Output: Urine 600 Other: Voiding Method Urinal Toilet Urinal # Voids 1 1 # Bowel Movements 1 - Labs CBC & Chem 7: 03/17/25 07:52 03/17/25 07:52 Labs: Abnormal Lab Results - Last 24 Hours (Table) 03/16/25 03/16/25 03/16/25 Range/Units 07:33 07:33 07:33 RBC 5.74 H (4.40-5.60) 10*6/uL Hgb 18.6 H (13.0-17.0) g/dL Hct 51.8 H (39.6-50.0) % MCH 32.4 H (27.0-32.0) pg MPV 9.1 L (9.5-12.2) fL Immature Gran # 0.07 H (0.00-0.04) 10*3/uL Neutrophils # 7.88 H (1.80-7.70) 10*3/uL Lymphocytes # 0.53 L (0.90-5.00) 10*3/uL Eosinophils # 0.00 L (0.04-0.35) 10*3/uL Sodium 126 L (137-145) mmol/L Chloride 91 L (98-107) mmol/L Creatinine 0.60 L (0.66-1.25) mg/dL Glucose 136 H (74-99) mg/dL Osmolality 271 L (275-295) mOsm/kg Total Bilirubin 1.5 H (0.2-1.3) mg/dL Ur Random Sodium (40-220) mmol/L 03/16/25 Range/Units 13:11 RBC (4.40-5.60) 10*6/uL Hgb (13.0-17.0) g/dL Hct (39.6-50.0) % MCH (27.0-32.0) pg MPV (9.5-12.2) fL Immature Gran # (0.00-0.04) 10*3/uL Neutrophils # (1.80-7.70) 10*3/uL Lymphocytes # (0.90-5.00) 10*3/uL Eosinophils # (0.04-0.35) 10*3/uL Sodium (137-145) mmol/L Chloride (98-107) mmol/L Creatinine (0.66-1.25) mg/dL Glucose (74-99) mg/dL Osmolality (275-295) mOsm/kg Total Bilirubin (0.2-1.3) mg/dL Ur Random Sodium 20 L (40-220) mmol/L
--- NOTE | 2025-03-17 13:26 | P.PN ---
Subjective Progress Note Date: 03/17/25 Principal diagnosis: Acute exacerbation of COPD with acute hypoxic respiratory failure and purulent tracheobronchitis. This is a 75-year-old white male smoker no history of COPD hypertension TIA, patient presented to the ER with shortness of breath cough and wheezing for the last few days. On 03/11/2025, patient was seen in the walk-in clinic and received treatment for symptoms of COPD exacerbation and tracheobronchitis, patient received inhalers, antibiotics, and steroids. Continues to do poorly, continues to smoke, here today in the ER for evaluation and I was asked to see him in consultation. Patient is an everyday smoker, he is at least a [id number] smoker, symptoms are classic symptoms of COPD with recurrent episodes of cough wheezing and shortness of breath. Chest x-ray showed COPD changes no acute process was noted otherwise. CBC is relatively normal except for hemoglobin of 18.8 which implies that the patient may be chronically hypoxic secondary to [employer] D, sodium is low at 122 otherwise his labs are unremarkable. Patient denies any nausea vomiting denies any diarrhea, and no clear-cut as what his baseline sodium is normally. Patient was evaluated today on 03/16/2025, seeing him for follow-up on his acute COPD exacerbation. Patient is feeling better today breathing easier less cough less wheezing less shortness of breath, however not back to baseline. Sodium remains relatively low being addressed by admitting physician. WBC is 9.0 hemoglobin 18.6, electrolytes showed sodium up to 126 from 122 yesterday, renal profile is normal bicarb is normal blood sugar is 136. Chest x-ray on admission showed COPD changes, no acute cardiopulmonary process. Seen today on 03/17/2025, continues to have shortness of breath, intermittent episodes of cough and wheezing, slight improvement, but not good enough to discharge the patient home. Patient remains on bronchodilators and as listed. WBC count is 12.6 hemoglobin 18.1 hematocrit 51.8 sodium is 127 renal profile is normal sodium is improving with fluid restriction. Objective - Vital Signs Vital signs: Vital Signs Temp 97.4 F L 03/17/25 08:48 Pulse 90 03/17/25 11:59 Resp 22 03/17/25 11:55 BP 166/84 03/17/25 11:55 Pulse Ox 100 03/17/25 11:55 FiO2 Intake & Output 03/16/25 03/17/25 03/17/25 18:59 06:59 18:59 Intake Total 250 250 Output Total 600 375 Balance 250 -600 -125 Weight 64.1 kg Intake: IV 10 10 Invasive Line 1 10 10 Oral 240 240 Output: Urine 600 375 Other: Voiding Method Urinal Toilet Toilet Urinal Urinal # Voids 1 1 # Bowel Movements 1 - Exam General: The patient is awake and alert, in no distress, on 2 L nasal cannula Skin: Skin is warm and dry and no rashes or lesions are noted. Eye: Pupils are equal, round and reactive to light, extra-ocular movements are intact; there is normal conjunctiva bilaterally. Ears, nose, mouth and throat: There are moist mucous membranes and no oral lesions. Neck: The neck is supple, there is no tenderness or JVD. Cardiovascular: There is a regular rate and rhythm. No murmur, rub or gallop is appreciated. Respiratory: Scattered rhonchi and wheezing noted bilaterally Gastrointestinal: Soft, non-distended, non-tender abdomen without masses or organomegaly noted. There is no rebound or guarding present. Bowel sounds are unremarkable. Back: There is no tenderness to palpation in the midline. There is no obvious deformity. Musculoskeletal: Normal ROM, no tenderness, There is no pedal edema. There is no calf tenderness or swelling. No cords were appreciated. Neurological: CN II-XII intact, Cranial nerves III through XII are intact. There are no obvious motor or sensory deficits. Coordination appears grossly intact. Speech is normal. Psychiatric: Cooperative, appropriate mood & affect, normal judgment. - Labs CBC & Chem 7: 03/17/25 07:52 03/17/25 07:52 Labs: Abnormal Lab Results - Last 24 Hours (Table) 03/16/25 03/16/25 03/17/25 Range/Units 07:33 13:11 07:52 WBC 12.61 H (4.50-10.00) 10*3/uL RBC 5.65 H (4.40-5.60) 10*6/uL Hgb 18.1 H (13.0-17.0) g/dL Hct 51.8 H (39.6-50.0) % MPV 9.1 L (9.5-12.2) fL Sodium (137-145) mmol/L Chloride (98-107) mmol/L Creatinine (0.66-1.25) mg/dL Glucose (74-99) mg/dL Osmolality 271 L (275-295) mOsm/kg Ur Random Sodium 20 L (40-220) mmol/L 03/17/25 Range/Units 07:52 WBC (4.50-10.00) 10*3/uL RBC (4.40-5.60) 10*6/uL Hgb (13.0-17.0) g/dL Hct (39.6-50.0) % MPV (9.5-12.2) fL Sodium 127 L (137-145) mmol/L Chloride 89 L (98-107) mmol/L Creatinine 0.65 L (0.66-1.25) mg/dL Glucose 125 H (74-99) mg/dL Osmolality (275-295) mOsm/kg Ur Random Sodium (40-220) mmol/L Assessment and Plan Assessment: Impression: Acute COPD exacerbation Acute hypoxic respiratory failure Acute tracheobronchitis Euvolemic hyponatremia Dyslipidemia Tobacco dependence syndrome History of hypertension Secondary polycythemia most likely secondary to chronic hypoxia secondary to severe COPD Recommendation: Continue fluid restriction for hyponatremia Continue bronchodilators, including DuoNeb and Symbicort Continue methylprednisolone Continue DVT prophylaxis. Continue to closely monitor his sodium and address accordingly Not quite ready for discharge at this point We will continue to follow
[2025-03-17] MEDS: CALCIUM CARBONATE 500 MG CHEWABLE PO PRN (15:37)
[2025-03-17] MEDS: ONDANSETRON 4 MG/2 ML VIAL IVP PRN (23:21)
[2025-03-18] MEDS: PROCHLORPERAZINE INJ 10 MG/2 ML VIAL IVP PRN (02:19)
[2025-03-18 07:41] LABS: HCT 50.9 % (39.6-50.0); HGB 17.7 g/dL (13.0-17.0); MCH 31.4 pg (27.0-32.0); MCHC 34.8 g/dL (32.0-37.0); MCV 90.2 fL (80.0-97.0); Mean Platelet Volume 8.8 fL (9.5-12.2); Platelet Count 254 10*3/uL (140-440); RBC 5.64 10*6/uL (4.40-5.60); WBC 18.11 10*3/uL (4.50-10.00)
[2025-03-18 07:59] LABS: African American GFR (CKD) >90 (>60 ml/min/1.73 sqM); Anion Gap 8 mmol/L; Blood Urea Nitrogen 25 mg/dL (9-20); Calcium 9.2 mg/dL (8.4-10.2); Carbon Dioxide 27 mmol/L (22-30); Chloride 89 mmol/L (98-107); Glucose 101 mg/dL (74-99); Non-African American GFR(CKD) >90 (>60 ml/min/1.73 sqM); Potassium 4.4 mmol/L (3.5-5.1); Sodium 124 mmol/L (137-145)
[2025-03-18 11:44] VITALS: BP 139/86; RESP 22; TEMP 97.7
[2025-03-18 12:40] VITALS: PULSE 80
--- NOTE | 2025-03-18 14:29 | P.DS ---
Providers Date of admission: 03/15/25 13:38 Expected date of discharge: 03/18/25 Attending physician: Scott Gaston Consults: 03/15/25 13:37 Consult Physician Routine Consulting Provider: Demi Gray Consult Reason/Comments: copd Do you want consulting provider notified?: Yes Primary care physician: Eduin Tobar [facility] Course: #. Acute hypoxic respiratory failure #. COPD exacerbation #. Euvolemic Hyponatremia, improving #. Hyperbilirubinemia, improving #. Coagulopathy, resolved #. History of TIA #. Hypertension Hospital course: Patient is a 75 year old male with hypertension, COPD, TIA, tobacco dependence presented to the ED with shortness of breath. He states that his symptoms started with a cold. on 03/11 he went a walk in clinic and he is being treated for COPD exacerbation at home for the past 3 days with steroids, antibiotics and breathing treatments. In the ED patient was treated with DuoNeb, Lactated Ringer, Magnesium sulfate, Solu-Medrol. 03/16/25: Patient is seen and examined at bedside today. He notes improvement in his shortness of breath. 03/17/25: Patient evaluated at bedside. Yesterday he was walking in the lobby and he would get short of breath frequently and would assume a tripod position. Patient states his shortness of breath is better. 03/18/25: Pt is amenable to discharge and requests to go home. He understood need for compliance with home oxygen. Pt was discharged with prednisone taper starting at 40mg. He was asked to f/u his BMP in 3 days for his Na level. He was referred to nephrology, will also f/u with PCP and pulmonology. Cleared for discharge home, and I sepent 37 minutes coordinating the discharge. Gen: In NAD, non-toxic HEENT: normocephalic, atraumatic, hearing acuity is intant, mucous membranes moist CVS: perfusing all extremities well, no pitting edema, Respiratory: symmetric chest expansion, no accessory muscle use, GI: soft, NTTP, ND, : no suprapubic tenderness, no CVA tenderness MSK/Derm: no rashes, cyanosis Neuro: CN II-XII intact, no motor weakness, Psych: cooperative, euthymic mood, judgment and insight is intact Patient Condition at Discharge: Good Plan - Discharge Summary Discharge Rx Participant: No New Discharge Prescriptions: New Ipratropium-Albuterol Nebulize [Duoneb 0.5 mg-3 mg/3 ml Soln] 3 ml INHALATION RT-Q2H PRN #30 each PRN Reason: Shortness Of Breath Or Wheezing predniSONE [Deltasone] See Rx Instructions .ROUTE .COMPLEX #15 tab Albuterol Inhaler [Ventolin Hfa Inhaler] 1 - 2 puff INHALATION Q4H PRN #1 each PRN Reason: Dyspnea Continue Aspirin EC [Ecotrin Low Dose] 81 mg PO DAILY lisinopriL [Zestril] 40 mg PO DAILY Fluticasone/Umeclidin/Vilanter [Trelegy Ellipta 100-62.5-25] 1 puff INHALATION RT-DAILY Atorvastatin [Lipitor] 40 mg PO DAILY Discontinued Doxycycline Hyclate 100 mg PO BID predniSONE See Taper PO DIRECTED Discharge Medication List Aspirin EC [Ecotrin Low Dose] 81 mg PO DAILY 03/15/25 [History] Atorvastatin [Lipitor] 40 mg PO DAILY 03/15/25 [History] Fluticasone/Umeclidin/Vilanter [Trelegy Ellipta 100-62.5-25] 1 puff INHALATION RT-DAILY 03/15/25 [History] lisinopriL [Zestril] 40 mg PO DAILY 03/15/25 [History] Albuterol Inhaler [Ventolin Hfa Inhaler] 1 - 2 puff INHALATION Q4H PRN #1 each 03/18/25 [Rx] Ipratropium-Albuterol Nebulize [Duoneb 0.5 mg-3 mg/3 ml Soln] 3 ml INHALATION RT-Q2H PRN #30 each 03/18/25 [Rx] predniSONE [Deltasone] See Rx Instructions .ROUTE .COMPLEX #15 tab 03/18/25 [Rx] Follow up Appointment(s)/Referral(s): Eduin Hare MD [Primary Care Provider] - 1-2 days Kevin Krishnan DO [Doctor of Osteopathic Medicine] - 1 Week Raoul Mehta DO [STAFF PHYSICIAN] - 1 Week Ambulatory/Diagnostic Orders: Basic Metabolic Panel [LAB.AMB] Time Frame: 3 Days, Location: None Selected Discharge Disposition: HOME SELF-CARE
--- NOTE | 2025-03-18 15:22 | P.PN ---
Subjective Progress Note Date: 03/18/25 Principal diagnosis: Acute exacerbation of COPD with acute hypoxic respiratory failure and purulent tracheobronchitis. This is a 75-year-old white male smoker no history of COPD hypertension TIA, patient presented to the ER with shortness of breath cough and wheezing for the last few days. On 03/11/2025, patient was seen in the walk-in clinic and received treatment for symptoms of COPD exacerbation and tracheobronchitis, patient received inhalers, antibiotics, and steroids. Continues to do poorly, continues to smoke, here today in the ER for evaluation and I was asked to see him in consultation. Patient is an everyday smoker, he is at least a [id number] smoker, symptoms are classic symptoms of COPD with recurrent episodes of cough wheezing and shortness of breath. Chest x-ray showed COPD changes no acute process was noted otherwise. CBC is relatively normal except for hemoglobin of 18.8 which implies that the patient may be chronically hypoxic secondary to [employer] D, sodium is low at 122 otherwise his labs are unremarkable. Patient denies any nausea vomiting denies any diarrhea, and no clear-cut as what his baseline sodium is normally. Patient was evaluated today on 03/16/2025, seeing him for follow-up on his acute COPD exacerbation. Patient is feeling better today breathing easier less cough less wheezing less shortness of breath, however not back to baseline. Sodium remains relatively low being addressed by admitting physician. WBC is 9.0 hemoglobin 18.6, electrolytes showed sodium up to 126 from 122 yesterday, renal profile is normal bicarb is normal blood sugar is 136. Chest x-ray on admission showed COPD changes, no acute cardiopulmonary process. Seen today on 03/17/2025, continues to have shortness of breath, intermittent episodes of cough and wheezing, slight improvement, but not good enough to discharge the patient home. Patient remains on bronchodilators and as listed. WBC count is 12.6 hemoglobin 18.1 hematocrit 51.8 sodium is 127 renal profile is normal sodium is improving with fluid restriction. Seen today on 03/18/2025, patient is feeling much better, breathing easier, he wants to go home. He was hoping that he could be discharged home by the end of the day or early in the morning tomorrow. I believe the patient could be considered for discharge, however he needs to have close follow-up within few days in my office. Objective - Vital Signs Vital signs: Vital Signs Temp 97.7 F 03/18/25 11:42 Pulse 80 03/18/25 12:51 Resp 22 03/18/25 11:42 BP 139/86 03/18/25 11:42 Pulse Ox 95 03/18/25 11:42 FiO2 Intake & Output 03/17/25 03/18/25 03/18/25 18:59 06:59 18:59 Intake Total 490 10 250 Output Total 375 Balance 115 10 250 Intake: IV 10 10 10 Invasive Line 1 10 10 10 Oral 480 240 Output: Urine 375 Other: Voiding Method Toilet Toilet Toilet Urinal Urinal Urinal # Voids 2 1 # Bowel Movements 1 - Exam General: The patient is awake and alert, in no distress, on room air Skin: Skin is warm and dry and no rashes or lesions are noted. Eye: Pupils are equal, round and reactive to light, extra-ocular movements are intact; there is normal conjunctiva bilaterally. Ears, nose, mouth and throat: There are moist mucous membranes and no oral lesions. Neck: The neck is supple, there is no tenderness or JVD. Cardiovascular: There is a regular rate and rhythm. No murmur, rub or gallop is appreciated. Respiratory: Minimal wheezing on forced expiratory maneuver much improved compared to baseline Gastrointestinal: Soft, non-distended, non-tender abdomen without masses or organomegaly noted. There is no rebound or guarding present. Bowel sounds are unremarkable. Back: There is no tenderness to palpation in the midline. There is no obvious deformity. Musculoskeletal: Normal ROM, no tenderness, There is no pedal edema. There is no calf tenderness or swelling. No cords were appreciated. Neurological: CN II-XII intact, Cranial nerves III through XII are intact. There are no obvious motor or sensory deficits. Coordination appears grossly intact. Speech is normal. Psychiatric: Cooperative, appropriate mood & affect, normal judgment. - Labs CBC & Chem 7: 03/18/25 06:24 03/18/25 06:24 Labs: Abnormal Lab Results - Last 24 Hours (Table) 03/18/25 03/18/25 Range/Units 06:24 06:24 WBC 18.11 H (4.50-10.00) 10*3/uL RBC 5.64 H (4.40-5.60) 10*6/uL Hgb 17.7 H (13.0-17.0) g/dL Hct 50.9 H (39.6-50.0) % MPV 8.8 L (9.5-12.2) fL Sodium 124 L (137-145) mmol/L Chloride 89 L (98-107) mmol/L BUN 25 H (9-20) mg/dL Glucose 101 H (74-99) mg/dL Assessment and Plan Assessment: Impression: Acute COPD exacerbation Acute hypoxic respiratory failure Acute tracheobronchitis Euvolemic hyponatremia Dyslipidemia Tobacco dependence syndrome History of hypertension Secondary polycythemia most likely secondary to chronic hypoxia secondary to severe COPD Recommendation: Will clear the patient for discharge assuming he will follow-up within a short period of time/few days in my office Continue bronchodilators, including DuoNeb and Symbicort Prednisone taper over 2 weeks Time with Patient: Less than 30
== END 2025-03-18 15:24 | disposition home or self-care (01) | DRG 189 ==
LOC: EC 09:10 → 4SSUR 13:38 → 3SCARD 18:38
PROVIDERS: ADMIT Student in an Organized Health Care Education/Training Program; ATTEND Student in an Organized Health Care Education/Training Program
DX: J96.21 Acute and chronic respiratory failure with hypoxia (principal); D68.9 Coagulation defect, unspecified; E87.1 Hypo-osmolality and hyponatremia; J44.0 Chronic obstructive pulmonary disease with (acute) lower respiratory infection; Z99.81 Dependence on supplemental oxygen; S00.33XA Contusion of nose, initial encounter; D75.1 Secondary polycythemia; I10 Essential (primary) hypertension; J44.1 Chronic obstructive pulmonary disease with (acute) exacerbation; E78.5 Hyperlipidemia, unspecified; E80.6 Other disorders of bilirubin metabolism; F17.210 Nicotine dependence, cigarettes, uncomplicated; J20.9 Acute bronchitis, unspecified; Z79.51 Long term (current) use of inhaled steroids; Z86.73 Personal history of transient ischemic attack (TIA), and cerebral infarction without residual deficits; Z79.82 Long term (current) use of aspirin; Z79.899 Other long term (current) drug therapy
CPT/HCPCS: 36415; 71046; 80048; 80053; 81003; 83605; 83735; 83930; 83935; 84300; 84443; 85025; 85027; 85610; 85730; 87636; 93005; 94640; 94760; 96365; 96375; 99285